=== PATIENT | female | born 1950 | race African-American/Black ===

== ENCOUNTER 2025-03-06 09:26 | Emergency (ER) | payer MEDICARE ==
[~2025-03-06] VITALS: Ht 172.7 cm; Wt 70.0 kg
[2025-03-06 09:26] VITALS: O2SAT 0
[2025-03-06 09:29] VITALS: BP 0/0; PULSE 0; RESP 12; TEMP 35.7; O2SAT 0
== END 2025-03-06 11:42 ==
LOC: ER 09:26
DX: I46.9 Cardiac arrest, cause unspecified (principal); R06.02 Shortness of breath; E03.9 Hypothyroidism, unspecified
CPT/HCPCS: 31500; 92950; 94070; 94664; 99285